=== PATIENT | female | born 1990 | race African-American/Black ===

== ENCOUNTER 2020-11-04 13:49 | Emergency (ER) | payer SELFPAY ==
[~2020-11-04] VITALS: Ht 172.7 cm; Wt 86.2 kg
--- NOTE | 2020-11-04 14:00 | NUR ---
TO ER BED 3, LOWER ABDOMINAL PAIN, DYSURIA X 4 DAYS, AWAITING MD GALICIA
--- NOTE | 2020-11-04 14:05 | NUR ---
URINE COLLECTED AND SENT TO LAB
[2020-11-04 14:57] LABS: BILIRUBIN,URINE NEGATIVE (NEGATIVE); COLOR,URINE YELLOW (YELLOW); LEUKOCYTE ESTERASE ,URINE TRACE (NEGATIVE); NITRITE, URINE NEGATIVE (NEGATIVE); PROTEIN,URINE NEGATIVE (NEGATIVE); UGLUCOSE NEGATIVE (NEGATIVE); UROBILINOGEN,URINE 0.2 EU/dL (0.2)
[2020-11-04 15:21] LABS: BACTERIA,URINE Few /HPF (None Seen); RBC,URINE 0-2 /HPF (0-2); SQUAMOUS EPITHELIAL CELL,UR Few /HPF (None Seen)
[2020-11-04 15:28] VITALS: BP 124/78
== END 2020-11-04 15:28 | disposition left against medical advice (07) ==
LOC: ER 13:49
DX: R10.32 Left lower quadrant pain (principal); R30.0 Dysuria
CPT/HCPCS: 81001; 84703-TC

== ENCOUNTER 2021-08-17 18:53 | Emergency (ER) | payer MEDICAID ==
[~2021-08-17] VITALS: Ht 167.6 cm; Wt 70.3 kg
[2021-08-17] MEDS ORDERED: TENOFOVIR DISOPROXIL FUMARATE 300 MG TABLET PO ONE (18:59)
[2021-08-17] MEDS ORDERED: EMTRICITABINE 200 MG CAPSULE PO ONE (18:59)
[2021-08-17 19:42] VITALS: BP 157/76
--- NOTE | 2021-08-17 20:31 | NUR ---
POLICE REPORT DONE TO [employer] # [id number]
[2021-08-17] MEDS: RALTEGRAVIR POTASSIUM 400 MG TABLET PO ONE (21:08)
[2021-08-17] MEDS: EMTRICITABINE/TENOFOVIR 1 TAB PO ONE (21:08)
--- NOTE | 2021-08-17 21:24 | NUR ---
[employer] SPEAKING TO THE PT
[2021-08-17] MEDS ORDERED: EMTR1TAB12 PO (21:46)
[2021-08-17] MEDS ORDERED: RALT400T PO (21:46)
[2021-08-17 21:56] LABS: ALBUMIN 4.4 g/dL (3.4-5.0); BILIRUBIN,DIRECT 0.1 mg/dL (0.0-0.2); BILIRUBIN,TOTAL 0.3 mg/dL (0.2-1.0); TOTAL PROTEIN, SERUM 8.7 g/dL (6.4-8.2)
== END 2021-08-17 22:01 | disposition home or self-care (01) ==
LOC: ER 18:58
DX: R10.2 Pelvic and perineal pain (principal); Z79.899 Other long term (current) drug therapy
CPT/HCPCS: 80076-TC; 84703-TC; 86592; 86593; 86706; 86803; 87491; 87591; 87806

== ENCOUNTER 2023-02-25 02:06 | Emergency (ER) | payer MEDICAID ==
[~2023-02-25] VITALS: Ht 167.6 cm; Wt 72.6 kg
[~2023-02-25 02:06] MED LIST: RALT400T PO
[2023-02-25] MEDS ORDERED: CEFTRIAXONE 500 MG VIAL ONE (03:54)
[2023-02-25] MEDS ORDERED: METRONIDAZOLE 500 MG TABLET ONE (03:55)
[2023-02-25] MEDS ORDERED: AZITHROMYCIN 250 MG TABLET ONE (03:55)
[2023-02-25] MEDS ORDERED: LIDOCAINE /MPF 1% VIAL 5 ML VIAL ONE (03:56)
[2023-02-25] MEDS ORDERED: METRONIDAZOLE 500 MG TABLET PO ONE (04:00)
[2023-02-25] MEDS ORDERED: CEFTRIAXONE 500 MG VIAL IM ONE (04:00)
[2023-02-25] MEDS ORDERED: AZITHROMYCIN 250 MG TABLET PO ONE (04:00)
[2023-02-25 04:07] LABS: APPEARANCE,URINE TURBID (CLEAR); BILIRUBIN,URINE NEGATIVE (NEGATIVE); BLOOD, URINE 3+ Ery/uL (NEGATIVE); COLOR,URINE YELLOW (YELLOW); KETONES,URINE NEGATIVE (NEGATIVE); LEUKOCYTE ESTERASE ,URINE 3+ (NEGATIVE); NITRITE, URINE POSITIVE (NEGATIVE); PH,URINE 6.5 (5.0-8.0); PREGNANCY TEST URINE QUAL NEGATIVE (NEGATIVE); PROTEIN,URINE 2+ mg/dl (NEGATIVE); UGLUCOSE NEGATIVE (NEGATIVE); UROBILINOGEN,URINE 0.2 EU/dL (0.2)
[2023-02-25 04:08] LABS: ADD URINE CULTURE YES; BACTERIA,URINE Many /HPF (None Seen); SQUAMOUS EPITHELIAL CELL,UR Rare /HPF (None Seen); WBC,URINE 51-80 /HPF (0-3)
[2023-02-25] MEDS ORDERED: NITR100C6 PO (04:38)
[2023-02-25 04:43] VITALS: BP 128/71; TEMP 98; O2SAT 99
[2023-02-27 12:06] LABS: CHLAMYDIA TRACHOMATIS NAA Negative (Negative); NEISSERIA GONORRHOEAE NAA Negative (Negative)
== END 2023-02-25 04:44 | disposition home or self-care (01) ==
LOC: ER 02:12
DX: N39.0 Urinary tract infection, site not specified (principal); R10.2 Pelvic and perineal pain; Z79.899 Other long term (current) drug therapy
CPT/HCPCS: 99283; 96372; 87086; 84703; 81001; 87491; 87591; J0696; J3490